=== PATIENT | female | born 1960 | race Caucasian/White ===

== ENCOUNTER 2019-10-14 07:42 | Outpatient (CLI) | payer MEDICARE, MEDICAID, SELFPAY ==
--- NOTE | 2019-10-14 07:58 | MM_ITS ---
WS: [id number] BILATERAL SCREENING DIGITAL MAMMOGRAM WITH CAD HISTORY: SCREENING COMPARISON: 06/16/2017, 08/18/2013 and 11/14/2003 Bilateral CC and MLO views submitted. Computer aided detection analyzed. Breast composition: There are scattered areas of fibroglandular density. No suspicious masses, microc alcifications or architectural distortion. 2 mm nodule seen on the LEFT MLO projection posteriorly figueroa s been present since 2003. MM/[id number] IMPRESSION: BI-RADS: 2-Benign FOLLOW UP: 1 Year Follow-up
== END 2019-10-14 07:43 | disposition home or self-care (01) ==
PROVIDERS: Family Provider Family Medicine; PCP Family Medicine; Visit Provider Nurse Practitioner Family
DX: Z12.31 Encounter for screening mammogram for malignant neoplasm of breast (principal)
CPT/HCPCS: 77067

== ENCOUNTER 2020-03-01 08:11 | Outpatient (CLI) | payer MEDICARE, MEDICAID, SELFPAY ==
--- NOTE | 2020-03-01 11:19 | PFTS_ITS ---
Date of Study:03/01/20 Date of Dictation: MECHANICS: Forced vital capacity (FVC) is normal. Forced expiratory volume in one second (FEV1) is normal. FEV1/FVC is normal. FLOW VOLUME LOOP: Normal. LUNG VOLUMES: Not performed DIFFUSING CAPACITY FOR CARBON MONOXIDE: Not performed INTERPRETATION: The spirometry is normal. MTDD
== END 2020-03-01 08:12 | disposition home or self-care (01) ==
LOC: RT 08:16
PROVIDERS: PCP Family Medicine; Visit Provider Internal Medicine Cardiovascular Disease
DX: R06.09 Other forms of dyspnea (principal)
CPT/HCPCS: 94010

== ENCOUNTER → 2020-10-25 08:09 | Outpatient (BNVA) | payer MEDICARE, MEDICAID, SELFPAY | PROVIDERS: PCP Internal Medicine; Visit Provider Surgery | DX: Z01.812 Encounter for preprocedural laboratory examination (principal); K63.5 Polyp of colon | CPT/HCPCS: 87635 ==

== ENCOUNTER 2020-10-31 07:07 | Day surgery (SDC) | payer MEDICARE, MEDICAID, SELFPAY ==
[2020-10-27 13:25] VITALS: BMI 24.9
[2020-10-31] MEDS: sodium chloride 0.9% 1,000 ML 30 ML IV (07:53)
--- NOTE | 2020-10-31 08:26 | ANES.PREANE2 ---
Pre-Anesthetic Assessment Pre-Anesthetic Assessment: Height/Weight: Height 1.63 m Weight 65.771 kg Preop Diagnosis: panendoscopy Proposed Procedure: Operation Date: 10/31/20 09:00 Proposed Procedures p EGD [id number] K63.5(Not Applicable) - Carlton Tran MD s Colonoscopy(Not Applicable) - Carlton Tran MD Was Beta Anup taken within 24 hours: Yes Last intake: Intake Last Liquid Date 10/31/20 Last Liquid Time 06:00 Last Solid Date 10/29/20 Last Solid Time 18:00 Social: Social History: Tobacco and No alcohol Exam: Pre-Anes Outpt Exam: alert, oriented x 3 and regular rate & rhythm Airway: Submandibular: WNL Cervical ROM: WNL MP: 2 Dentition: Full Pulmonary: Pulmonary: COPD GI: GI: GERD Anesthetic Plan: ASA status: 3 Anesthesia: MAC Risk of > 500 ml blood loss (7ml/kg in children): No Meds/Allergies Current Medications: Current Medications Generic Name Dose Route Start Last Admin Trade Name Freq PRN Reason Stop Dose Admin Sodium Chloride 1,000 mls @ 30 ml s/hr 10/31/20 07:45 10/31/20 07:53 Sodium Chloride 0.9% IV 11/01/20 07:44 30 mls/hr .Q24H NEETA Administration PFSH Anesthesia PFSH: Medical History Colon polyps COPD (chronic obstructive pulmonary disease) GERD (gastroesophageal reflux disease) Hyperlipidemia Hypertension Surgical History H/O colonoscopy 2013 H/O esophagogastroduodenoscopy 2013 H/O tubal ligation H/O: hysterectomy History of neck surgery Hx of cholecystectomy Hx of tonsillectomy Family History (Updated 10/18/20 @ 12:13 by Marta Magdaleno RN) Son Anesthesia complication Sister Stroke Other CAD (coronary artery disease) Cancer Diabetes Hyperlipidemia Hypertension Psychiatric illness Denies family history of Bleeding disorder Social History Smoking and tobacco status: current every day smoker Alcohol intake: never Lives independently: Yes Household members: family Marital status: Single Current occupational status: disabled History of recent travel: No Data Anesthesia Cardiac Studies: No Data to Display
--- NOTE | 2020-10-31 09:03 | W.PM.OPSUD ---
Surgery/Procedure H&P Update DATE OF PROCEDURE: October 31, 2020 DATE H&P PERFORMED: 10/13/20 H&P UPDATE INFORMATION: I have reviewed H&P completed within last 30 days, I have examined patient prior to procedure and No changes to prior documentation PREOP DIAGNOSIS: panendoscopy PLANNED PROCEDURE: Operation Date: 10/31/20 09:00 Proposed Procedures p EGD [id number] K63.5(Not Applicable) - Carlton Tran MD s Colonoscopy(Not Applicable) - Carlton Tran MD
[2020-10-31 09:44] VITALS: BP 99/60; PULSE 63; RESP 16; TEMP 36.1; O2SAT 96
[2020-10-31 09:59] VITALS: BP 96/58; PULSE 68; RESP 18; TEMP 36.2; O2SAT 94
[2020-10-31 10:25] VITALS: BP 130/89; PULSE 68; RESP 18; TEMP 36.3; O2SAT 97
--- NOTE | 2020-10-31 13:30 | ANE.PACU2 ---
Inpatient post-anesthesia follow up: Airway intact: Yes Vital signs: Temperature 97.4 F Pulse Rate 68 Respiratory Rate 18 Blood Pressure 130/89 Pulse Oximetry 97 Oxygen Delivery Me thod Room Air Oxygen Flow Rate 2 Fraction of Inspir ed Oxygen Hydration adequate: Yes Nausea and vomiting: No Pain level: 1 Mental status: Baseline
== END 2020-10-31 10:50 | disposition home or self-care (01) ==
PROVIDERS: PCP Internal Medicine; Visit Provider Surgery
PROC: 0DJ08ZZ Inspection of Upper Intestinal Tract, Via Natural or Artificial Opening Endoscopic (ICD-10-PCS; CPT 43235; principal; 2020-10-31 09:00)
PROC: 0DJD8ZZ Inspection of Lower Intestinal Tract, Via Natural or Artificial Opening Endoscopic (ICD-10-PCS; CPT 45378; 2020-10-31 09:00)
DX: K31.7 Polyp of stomach and duodenum (principal); K29.70 Gastritis, unspecified, without bleeding; K64.8 Other hemorrhoids; D12.5 Benign neoplasm of sigmoid colon; Z86.010 Personal history of colon polyps; K21.9 Gastro-esophageal reflux disease without esophagitis; J44.9 Chronic obstructive pulmonary disease, unspecified; E78.5 Hyperlipidemia, unspecified; I10 Essential (primary) hypertension; F17.210 Nicotine dependence, cigarettes, uncomplicated
CPT/HCPCS: 12345; 43239; 45380; 88305; J2704; J7030

== ENCOUNTER → 2021-04-17 11:14 | Outpatient (BNVA) | payer MEDICARE, MEDICAID, SELFPAY | PROVIDERS: PCP Internal Medicine; Visit Provider Nurse Practitioner Family | DX: M25.572 Pain in left ankle and joints of left foot (principal); M25.472 Effusion, left ankle; M76.72 Peroneal tendinitis, left leg | CPT/HCPCS: 73610 ==

== ENCOUNTER 2021-06-21 09:48 | Outpatient (CLI) | payer MEDICARE, MEDICAID, SELFPAY ==
--- NOTE | 2021-06-21 10:00 | CT_ITS ---
WS: [id number] LDCT LUNG CANCER SCREENING HISTORY: NICOTINE Dependence, cigarettes TECHNIQUE: Axial imaging performed from the apices to 1 cm below the costophrenic angles. Coronal and sagittal reformats are submitted with axial MIP series. All CT scans at [facility] use at least one of these dose optimization techniques: automated exposure control; mA and/or kV adjustment per patient size (includes targeted exams where dose is matched to clinical indication); or iterativ e reconstruction. DLP: 58.54 mGy.cm DIvol: 1.58 mGy COMPARISON: None available. Diagnostic quality: Satisfactory Lung Nodules: Centrilobular emphysema is moderate. There are small micronodules bilaterally. Mild dif fuse interstitial thickening is probably related to history of smoking. Calcified granuloma present b ilaterally. No endobronchial lesions or groundglass attenuation. Lungs: See above. Heart: Normal size heart. Scattered coronary artery calcifications. No effusion. Other findings: Small hiatal hernia. Calcified hilar lymph nodes. Mild atherosclerosis aorta. Bulbous contour of the superior pole RIGHT kidney. Possible 2.6 cm mass. Cannot exclude cyst or mass. CT/CT lung screening [id number] IMPRESSION: LUNG-RADS: 1S-Negative with Significant Findings FOLLOW UP: 12 Month: Continue annual screening with LDCT OTHER FINDINGS (S MODIFIER): Possible mass from the superior pole RIGHT kidney. Recommend renal ultrasound evaluation for follow-up.
== END 2021-06-21 09:49 | disposition home or self-care (01) ==
PROVIDERS: PCP Internal Medicine; Visit Provider Nurse Practitioner Family
DX: Z12.2 Encounter for screening for malignant neoplasm of respiratory organs (principal); F17.210 Nicotine dependence, cigarettes, uncomplicated
CPT/HCPCS: 71271

== ENCOUNTER 2021-08-02 07:54 | Outpatient (CLI) | payer MEDICARE, MEDICAID, SELFPAY ==
--- NOTE | 2021-08-02 08:04 | MM_ITS ---
WS: [id number] Exam: [place] [id number] Date/Time of Exam: 08/02/2021 8:04 AM Reason For Exam: SCREENING VIEWS: MLO and CC views both breasts. Comparison made with prior exam of 07/20/2013, 06/16/2017 and 10/14/2019. Findings: There was no sign of mass, architectural distortion or suspicious calcification in either breast. Sc attered fibroglandular densities MM/[id number] Impression: BI-RADS: 2-Benign FOLLOW-UP: 1 Year Follow-up This mammogram was also analyzed by the Computer Aided Detection System R2 Imag e Calculating Machine Operator.
== END 2021-08-02 07:55 | disposition home or self-care (01) ==
LOC: RADSHAW 07:57
PROVIDERS: PCP Internal Medicine; Visit Provider Nurse Practitioner Family
DX: Z12.31 Encounter for screening mammogram for malignant neoplasm of breast (principal)
CPT/HCPCS: 77067

== ENCOUNTER 2021-09-21 06:57 | Outpatient (CLI) | payer MEDICARE, MEDICAID, SELFPAY ==
--- NOTE | 2021-09-21 | US_ITS ---
WS: [id number] RENAL ULTRASOUND HISTORY: ABNORMAL RADIOLOGIC FINDINGS ON DIAGNOSTIC IMAGING OF RT KID COMPARISON: CT chest 06/21/2021 TECHNIQUE: 2-D and color Doppler imaging of the kidney submitted. Right kidney: 9.7 cm x 4.9 cm x 4.3 cm. Normal size kidney. No hydronephrosis. Previously described possible mass from the superior pole of t he RIGHT kidney is a simple cyst measuring 2.6 x 2.2 x 2.4 cm. No solid mass. Left kidney: 9.9 cm x 5.2 cm x 5.3 cm. Normal echogenicity with no hydronephrosis or mass. Aorta: Normal. Urinary Bladder: Normal distention. US/US renal BI* [id number] IMPRESSION: 1. Simple cyst upper pole RIGHT kidney. This correlates with the abnormality s een on low-dose lung screening. No solid mass. 2. No hydronephrosis.
== END 2021-09-21 06:58 | disposition home or self-care (01) ==
LOC: US 07:01
PROVIDERS: PCP Internal Medicine; Visit Provider Nurse Practitioner Family
DX: R93.421 Abnormal radiologic findings on diagnostic imaging of right kidney (principal); N28.1 Cyst of kidney, acquired
CPT/HCPCS: 76770

== ENCOUNTER 2022-07-30 08:12 | Outpatient (CLI) | payer MEDICARE, MEDICAID, SELFPAY ==
--- NOTE | 2022-07-30 08:23 | CT_ITS ---
WS: [id number] LDCT LUNG CANCER SCREENING HISTORY: TOBACCO USE TECHNIQUE: Axial imaging performed from the apices to 1 cm below the costophrenic angles. Coronal and sagittal reformats are submitted with axial MIP series. All CT scans at [facility] use at least one of these dose optimization techniques: automated exposure control; mA and/or kV adjustment per patient size (includes targeted exams where dose is matched to clinical indication); or iterativ e reconstruction. DLP: 67.72 mGy.cm DIvol: Mean CTDIvol: 1.60 (mGy) COMPARISON: 06/21/2021 Diagnostic quality: Satisfactory Lung Nodules: Hyperexpanded lungs from emphysema. Bilateral calcified granulomata. No suspicious mass or nodules are identified. 3 mm nodule in the posterior LEFT upper lobe is unchanged. No endobronchi al lesion. Heart: Normal size heart. No pericardial effusion. Scattered coronary artery calcifications. Other findings: Mild atherosclerosis aorta. No aneurysm. There are small mediastinal and hilar lymph nodes. Pulmonary artery size is normal. Small hiatal hernia. Mild thickening of the LEFT adrenal glan d. Lobulated contour superior pole RIGHT kidney corresponds to a cyst seen on a recent ultrasound. CT/CT lung screening [id number] IMPRESSION: LUNG-RADS: 2-Benign Appearance or Behavior FOLLOW UP: 12 Month: Continue annual screening with LDCT OTHER FINDINGS (S MODIFIER): None.
== END 2022-07-30 08:13 | disposition home or self-care (01) ==
LOC: RAD 08:16
PROVIDERS: PCP Family Medicine; Visit Provider Nurse Practitioner Family
DX: Z12.2 Encounter for screening for malignant neoplasm of respiratory organs (principal); Z87.891 Personal history of nicotine dependence
CPT/HCPCS: 71271